=== PATIENT | female | born 1995 | race African-American/Black ===

== ENCOUNTER 2018-08-16 06:51 | Emergency (ER) | payer OTHER ==
[~2018-08-16] VITALS: Ht 175.3 cm; Wt 54.4 kg
[2018-08-16 07:11] LABS: URINE BILIRUBIN NEGATIVE (Negative); URINE BLOOD NEGATIVE (Negative); URINE CLARITY CLEAR; URINE COLOR YELLOW; URINE GLUCOSE-RANDOM* NEGATIVE (Negative); URINE KETONES NEGATIVE (Negative); URINE LEUKOCYTES-REFLEX NEGATIVE (Negative); URINE NITRITE-REFLEX NEGATIVE (Negative); URINE PROTEIN (DIPSTICK) TRACE (Negative); URINE SPECIFIC GRAVITY >= 1.030 (1.005-1.035); URINE UROBILINOGEN 0.2 E.U./dl (0.2-1.0)
[2018-08-16 07:32] VITALS: BP 116/78
[2018-08-16] MEDS ORDERED: ZOFRAN ODT8 MG PO (07:36)
== END 2018-08-16 08:24 | disposition home or self-care (01) ==
LOC: ER 06:51
PROVIDERS: Emergency Medicine
DX: H10.9 Unspecified conjunctivitis (principal); R11.2 Nausea with vomiting, unspecified; R19.7 Diarrhea, unspecified

== ENCOUNTER 2021-10-15 16:27 | Emergency (ER) | payer BC ==
[~2021-10-15] VITALS: Ht 172.7 cm; Wt 49.9 kg
[~2021-10-15 16:27] MED LIST: ZOFRAN ODT8 MG PO
[2021-10-15 16:39] LABS: URINE BILIRUBIN NEGATIVE (Negative); URINE BLOOD 2+ (Negative); URINE CLARITY CLEAR; URINE COLOR YELLOW; URINE GLUCOSE-RANDOM* NEGATIVE (Negative); URINE KETONES NEGATIVE (Negative); URINE LEUKOCYTES-REFLEX NEGATIVE (Negative); URINE NITRITE-REFLEX NEGATIVE (Negative); URINE PROTEIN (DIPSTICK) NEGATIVE (Negative); URINE SPECIFIC GRAVITY 1.015 (1.005-1.035); URINE UROBILINOGEN 0.2 E.U./dl (0.2-1.0)
[2021-10-15 16:56] LABS: SQUAMOUS >10 Many /LPF (0-3)
[2021-10-15 16:57] LABS: BACTERIA-REFLEX 1-9 Few /HPF (None Seen); CASTS None Seen /LPF (None Seen); CRYSTALS None Seen /LPF (None Seen); URINE RBC 1-2 Rare /HPF (NONE SEEN); URINE WBC-REFLEX 0-5 Rare /HPF (0-5)
[2021-10-15 17:11] LABS: WBC 6.6 thou/uL (4.0-11.0)
[2021-10-15 17:13] LABS: HEMATOCRIT 35.4 % (37.0-47.0); HEMOGLOBIN 11.3 gm/dL (12.0-15.0); MCH 25.6 pg (26.0-34.0); PLATELET COUNT 258 thou/uL (150-400); RBC 4.42 mil/uL (4.20-5.00)
[2021-10-15 17:17] LABS: ANION GAP 13 mmol/L (7-16); BUN 8 mg/dL (7-18); CALCIUM 9.4 mg/dL (8.5-10.1); CHLORIDE 104 mmol/L (98-107); CO2 22 mmol/L (21-32); GLUCOSE 105 mg/dL (74-106); POTASSIUM 3.3 mmol/L (3.5-5.1); SODIUM 139 mmol/L (136-145)
[2021-10-15 17:55] LABS: ABSOLUTE NEUTROPHILS 5.9 thou/uL (1.4-8.2); ATYPICAL LYMPHS 1 %
[2021-10-15 18:16] VITALS: BP 95/54
[2021-10-15] MEDS ORDERED: ZOFRAN ODT4 MG PO (20:09)
--- NOTE | 2021-10-17 07:13 | EKG ---
[facility] [employer] 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 : 1995 Requested By: Teresa Barreto Order Number: [id number] MD: Clay Morales Measurements Intervals [place] Rate: 124 P: [place]: QRS: -79 QRSD: 76 T: -55 QT: 298 QTc: 428 Interpretive Statements NSR Left anterior fascicular block Low voltage, precordial leads Consider right ventricular hypertrophy Borderline T abnormalities, inferior leads No previous ECG available for comparison Electronically Signed On 10-17-2021 7:12:59 [employer] by Clay Morales [email or web address] <ELECTRONICALLY SIGNED> By: Clay Morales MD, [facility] 10/17/21 0712 [id number] Clay Morales MD, FACC /EPI
== END 2021-10-15 20:43 | disposition home or self-care (01) ==
LOC: ER 16:27
PROVIDERS: Emergency Medicine
DX: R11.10 Vomiting, unspecified (principal); T36.8X5A Adverse effect of other systemic antibiotics, initial encounter; R07.89 Other chest pain; R06.00 Dyspnea, unspecified; Y92.89 Other specified places as the place of occurrence of the external cause